=== PATIENT | female | born 1990 | race Caucasian/White ===

== ENCOUNTER → 2019-07-27 15:59 | Outpatient (BNVA) | payer OTHER, SELFPAY | PROVIDERS: Family Provider Family Medicine; PCP Family Medicine; Visit Provider Orthopaedic Surgery | DX: M25.512 Pain in left shoulder (principal) | CPT/HCPCS: 73030 ==

== ENCOUNTER → 2019-09-09 12:07 | Outpatient (BNVA) | payer OTHER, SELFPAY | PROVIDERS: Family Provider Family Medicine; PCP Family Medicine; Visit Provider Nurse Practitioner | DX: R09.89 Other specified symptoms and signs involving the circulatory and respiratory systems (principal); J20.9 Acute bronchitis, unspecified | CPT/HCPCS: 87400 ==

== ENCOUNTER 2019-10-19 18:01 | Emergency (ER) | payer OTHER, SELFPAY ==
[2019-10-19 18:24] LABS: Basophils # 0.1 10^3/uL (0.0-0.1); Basophils % 0.5 %; Eosinophils % 0.2 %; Hematocrit 40.1 % (37.0-47.0); Hemoglobin 13.1 g/dL (11.5-15.3); Lymphocytes % 39.9 %; Mean Corpuscular HGB Conc 32.7 g/dL (30.0-36.0); Mean Corpuscular Hemoglobin 28.8 pg (28.0-34.0); Mean Corpuscular Volume 88.1 fL (81-99); Mean Platelet Volume 9.4 fL (7.4-10.4); Monocytes # 0.6 10^3/uL (0.2-0.9); Monocytes % 5.9 %; Neutrophils # 5.4 10^3/uL (1.8-7.7); Neutrophils % 53.3 %; Nucleated Red Blood Cells % 0 %; Platelet Count 257 10^3/cmm (130-400); Red Blood Count 4.55 10^6/uL (4.1-5.3); Red Cell Distribution Width 11.7 % (12.1-15.1); White Blood Count 10.1 10^3/uL (4.0-10.0)
[2019-10-19 18:30] VITALS: BP 143/93; PULSE 81; RESP 18; TEMP 37.1; O2SAT 100; BMI 29.0
[2019-10-19 18:44] LABS: Alanine Aminotransferase 30 U/L (0-33); Albumin Level 4.8 g/dL (3.5-5.2); Alkaline Phosphatase 88 IU/L (35-105); Anion Gap 16.7 (5-19); Aspartate Amino Transferase 20 U/L (0-32); Blood Urea Nitrogen 10 mg/dL (6-20); Calcium 9.8 mg/dL (8.5-10.5); Carbon Dioxide 22 mmol/L (22-29); Chloride 103 mmol/L (98-107); Globulin 3.4 g/dL (1.3-4.6); Glomerular Filtration Rate 99.6 mL/min (90-130); Glucose 92 mg/dL (65-115); Lipase 15 U/L (13-60); Osmolality Calculated 282 mOsm/kg (285-295); Potassium 3.7 mmol/L (3.5-5.1); Sodium 138 mmol/L (136-145); Total Bilirubin 0.3 mg/dL (0.15-1.2); Total Protein 8.2 g/dL (6.6-8.7)
[2019-10-19 19:00] LABS: HCG Qualitative Urine. Negative (Negative)
[2019-10-19 19:03] LABS: Bilirubin Urine Neg (NEGATIVE); Blood Urine Neg (Negative); Glucose Urine UA Norm (Normal); Ketones Urine Negative (Negative); Nitrate Urine Negative (Negative); Protein Urine Neg (Negative); Specific Gravity, Urine 1.005 (1.005-1.030); Urine Appearance Clear (CLEAR); Urine Color Yellow (Yellow); Urobilinogen Urine Norm (Negative); pH Urine 7 (5-7)
[2019-10-19 19:04] LABS: Add Urine Microscopic? YES; Leukocyte Esterase Urine 2+ (Negative)
[2019-10-19 19:05] LABS: Add Urine Culture? Yes; Bacteria Urine 1+; Squamous Epithelial Cell Urine 0-4 (0-5); WBC Urine 15-25 /hpf (0-5)
[2019-10-19 19:35] VITALS: BP 137/71; PULSE 83; RESP 16; O2SAT 100
--- NOTE | 2019-10-19 19:35 | ED_ITS ---
HPI - Abdominal Pain General: Chief Complaint: Abdominal Pain Stated Complaint: abd pain, nausea Time Seen by Provider: 10/19/19 19:34 History of Present Illness: HPI narrative: Patient is a 28-year-old female who comes to the ED with right lower quadrant abdominal pain and nausea. Symptoms started about a week ago on Wednesday, October 13. Patient says she woke up feeling sick and described it as feeling green. She has felt nauseous for the past week but has not had any vomiting. She rates the abdominal pain of 5 out of 10 and is localized in the right lower quadrant. She states she has had a mild fever of 99 to 100 ?F. She is complaining of an 8 out of 10 headache pain. Due to the nausea and feeling unwell she has had some decreased oral intake over the past week. Patient has not had any abdominal surgeries. PMH of 2 pregnancies that ended in vaginal deliveries and those went well. She denies any Cp, SOB, Upper Resp symptoms, vomiting, diarrhea, constipation, hematuria, dysuria, back pain, epigastric pain or reflux. Patient also told me about her history of urinalysis showing white blood cells, but that is normal for her. She denies having any UTI symptoms currently. Associated Symptoms: Reports fever(s) and nausea; Denies chills, constipation, diarrhea, dysuria, hematochezia, hematuria and vomiting Related Data: Date of Last Menstrual Period: 10/02/19 Review of Systems Const: Reports: fever; Denies: chills or fatigue Eyes: Denies: change in vision or eye discomfort ENMT: Denies: throat pain, painful swallowing, nasal discharge or nasal congestion Card: Denies: chest pain, palpitations, edema, swelling of feet/ankles, shortness of breath on exertion or shortness of breath when lying down Resp: Denies: shortness of breath, productive cough or non-productive cough GI: Reports: abdominal pain and nausea; Denies: vomiting, diarrhea, constipation or blood in stool : Denies: flank pain, painful urination or blood in urine Musc: Denies: neck pain, back pain or extremity swelling Skin/Breast: Denies: rash or new lesion Neuro: Reports: headache; Denies: numbness in extremities or weakness in extremities PFS ED PFSH: Social History Smoking and tobacco status: never smoked History of recent travel: No Female Reproductive History: Date of last menstrual period: 10/02/19 Physical Exam Const: COMMON NORMALS: no apparent distress, oriented x3, healthy appearing and alert GENERAL APPEARANCE: cooperative and comfortable HENMT: COMMON NORMALS: normocephalic HEAD & SCALP: normocephalic MOUTH: oral and palatal mucosa normal THROAT: posterior oropharynx normal and uvula midline Eye: COMMON NORMALS: PERRL PUPIL: Yes PERRL Neck/C-Spine: COMMON NORMALS: supple GENERAL: Yes normal visual inspection Resp: COMMON NORMALS: normal respiratory effort, no retractions, no use of accessory muscles and clear to auscultation bilaterally AUSCULTATION: clear to auscultation bilaterally Cardio: COMMON NORMALS: regular rate, regular rhythm, S1 normal heart sound, S2 normal heart sound, no gallops, no clicks, no murmurs and peripheral pulses 2+ throughout RATE: regular rate RHYTHM: regular rhythm HEART SOUNDS: S1 normal and S2 normal PERIPHERAL PULSES: pulses 2+ throughout GI: COMMON NORMALS: normal to inspection, nondistended, normoactive bowel sounds, soft to palpation and no masses INSPECTION: Yes normal to inspection AUSCULTATION: Yes normoactive bowel sounds PALPATION: Yes soft, Yes tender (No peritoneal signs.) Details: RLQ (positive mcburney's) and No mass : COMMON NORMALS: Yes no CVA tenderness BLADDER/KIDNEY EXAM: Yes no CVA tenderness Back/Pelvis: COMMON NORMALS: no CVA tenderness Extremity: COMMON NORMALS: normal to inspection and no pedal edema Neuro: COMMON NORMALS: oriented x3 SENSORIUM/ORIENTATION: Yes alert GAIT: Yes normal gait Skin: COMMON NORMALS: no rashes or lesions noted GENERAL SKIN EXAM: no rashes or lesions noted and dry skin Course Vital Signs: Vital signs: Vital Signs Temperature 98.8 F 10/19/19 18:30 Pulse Rate 70 10/19/19 22:15 Respiratory Rate 16 10/19/19 22:15 Blood Pressure 126/71 10/19/19 22:15 Pulse Oximetry 100 10/19/19 22:11 MDM - Abdominal Pain MDM Narrative: Medical decision making narrative: Patient is a 29-year-old female comes to the ED with right lower quadrant abdominal pain. Symptoms started about a week ago. CT of the abdomen and pelvis was performed and showed no acute findings. Appendix was normal. Patient was diagnosed of abdominal pain in the right lower quadrant and she was given a prescription for Zofran to help with nausea. I instructed patient to return to ED if symptoms worsen. Follow-up with PCP in 5 to 7 days for reevaluation. Patient understood and agreed with plan. Lab Data: Attestation: I reviewed the patient's lab results. Labs: Lab Results 10/19/19 10/19/19 10/19/19 Range/Units 18:14 18:14 18:48 WBC 10.1 H (4.0-10.0) 10^3/ uL RBC 4.55 (4.1-5.3) 10^6/u L Hgb 13.1 (11.5-15.3) g/dL Hct 40.1 (37.0-47.0) % MCV 88.1 (81-99) fL MCH 28.8 (28.0-34.0) pg MCHC 32.7 (30.0-36.0) g/dL RDW 11.7 L (12.1-15.1) % Plt Count 257 (130-400) 10^3/c mm MPV 9.4 (7.4-10.4) fL Neut % (Auto) 53.3 % Lymph % (Auto) 39.9 % Ponce % (Auto) 5.9 % Eos % (Auto) 0.2 % Baso % (Auto) 0.5 % Neut # (Auto) 5.4 (1.8-7.7) 10^3/u L Lymph # (Auto) 4.0 (0.8-4.8) 10^3/u L Ponce # (Auto) 0.6 (0.2-0.9) 10^3/u L Eos # (Auto) 0.0 (0.0-0.8) 10^3/u L Baso # (Auto) 0.1 (0.0-0.1) 10^3/u L Nucleated RBC % (a uto) 0 % Nucleated RBCs # 0.0 /100WBC Sodium 138 (136-145) mmol/L Potassium 3.7 (3.5-5.1) mmol/L Chloride 103 (98-107) mmol/L Carbon Dioxide 22 (22-29) mmol/L Anion Gap 16.7 (5-19) BUN 10 (6-20) mg/dL Creatinine 0.7 (0.5-0.9) mg/dL GFR Calculation 99.6 (90-130) mL/min Glucose 92 (65-115) mg/dL Calculated Osmolal ity 282 L (285-295) mOsm/k g Calcium 9.8 (8.5-10.5) mg/dL Total Bilirubin 0.3 (0.15-1.2) mg/dL AST 20 (0-32) U/L ALT 30 (0-33) U/L Alkaline Phosphata se 88 (35-105) IU/L Total Protein 8.2 (6.6-8.7) g/dL Albumin 4.8 (3.5-5.2) g/dL Globulin 3.4 (1.3-4.6) g/dL Lipase 15 (13-60) U/L HCG, Qual Negative (Negative) Urine Color (Yellow) Urine Appearance (CLEAR) Urine pH (5-7) Ur Specific Gravit y (1.005-1.030) Urine Protein (Negative) Urine Glucose (UA) (Normal) Urine Ketones (Negative) Urine Blood (Negative) Urine Nitrate (Negative) Urine Bilirubin (NEGATIVE) Urine Urobilinogen (Negative) mg/dL Ur Leukocyte Fe ase (Negative) Urine RBC (0-2) /hpf Urine WBC (0-5) /hpf Ur Squamous Epith Cells (0-5) Urine Bacteria (NONE) 10/19/19 Range/Units 18:48 WBC (4.0-10.0) 10^3/ uL RBC (4.1-5.3) 10^6/u L Hgb (11.5-15.3) g/dL Hct (37.0-47.0) % MCV (81-99) fL MCH (28.0-34.0) pg MCHC (30.0-36.0) g/dL RDW (12.1-15.1) % Plt Count (130-400) 10^3/c mm MPV (7.4-10.4) fL Neut % (Auto) % Lymph % (Auto) % Ponce % (Auto) % Eos % (Auto) % Baso % (Auto) % Neut # (Auto) (1.8-7.7) 10^3/u L Lymph # (Auto) (0.8-4.8) 10^3/u L Ponce # (Auto) (0.2-0.9) 10^3/u L Eos # (Auto) (0.0-0.8) 10^3/u L Baso # (Auto) (0.0-0.1) 10^3/u L Nucleated RBC % (a uto) % Nucleated RBCs # /100WBC Sodium (136-145) mmol/L Potassium (3.5-5.1) mmol/L Chloride (98-107) mmol/L Carbon Dioxide (22-29) mmol/L Anion Gap (5-19) BUN (6-20) mg/dL Creatinine (0.5-0.9) mg/dL GFR Calculation (90-130) mL/min Glucose (65-115) mg/dL Calculated Osmolal ity (285-295) mOsm/k g Calcium (8.5-10.5) mg/dL Total Bilirubin (0.15-1.2) mg/dL AST (0-32) U/L ALT (0-33) U/L Alkaline Phosphata se (35-105) IU/L Total Protein (6.6-8.7) g/dL Albumin (3.5-5.2) g/dL Globulin (1.3-4.6) g/dL Lipase (13-60) U/L HCG, Qual (Negative) Urine Color Yellow (Yellow) Urine Appearance Clear (CLEAR) Urine pH 7 (5-7) Ur Specific Gravit y 1.005 (1.005-1.030) Urine Protein Neg (Negative) Urine Glucose (UA) Norm (Normal) Urine Ketones Negative (Negative) Urine Blood Neg (Negative) Urine Nitrate Negative (Negative) Urine Bilirubin Neg (NEGATIVE) Urine Urobilinogen Norm (Negative) mg/dL Ur Leukocyte Fe ase 2+ H (Negative) Urine RBC None (0-2) /hpf Urine WBC 15-25 H (0-5) /hpf Ur Squamous Epith Cells 0-4 H (0-5) Urine Bacteria 1+ H (NONE) Imaging Data ^: CT Abd/Pel: Attestation: I personally reviewed and interpreted this imaging study as follows: Radiologist's impression: [facility] [address] [place] [address] CT Scan Report Signed Patient: Elsie Alvarado Unit #: [id number] : 1990 Age/Sex: 28 / F ADM Date: 10/19/19 Loc: ER Room/Bed: Attending Dr: Ordering Provider/Ordering MD: Norberto Verdugo Date of Service: 10/19/19 Procedure(s): CT abdomen pelvis w con* [id number] Accession Number(s): [id number] Report Number: [id number] PROCEDURE INFORMATION: Exam: CT Abdomen And Pelvis With Contrast Exam date and time: 10/19/2019 7:54 PM Age: 28 years old Clinical indication: Abdominal pain; Additional info: Rlq pain and nausea, TECHNIQUE: Imaging protocol: Computed tomography of the abdomen and pelvis with intravenous contrast. Total DLP: 819.86 mGy-cm Radiation optimization: All CT scans at this facility use at least one of these dose optimization techniques: automated exposure control; mA and/or kV adjustment per patient size (includes targeted exams where dose is matched to clinical indication); or iterative reconstruction. Contrast material: OMNIPAQUE; Contrast volume: 95 ml; Contrast route: IV; COMPARISON: US pelvic with transvaginal 09/03/2014 9:29 AM FINDINGS: Liver: Unremarkable.No mass. Gallbladder and bile ducts: Normal. No calcified stones. No ductal dilation. Pancreas: Normal. No ductal dilation. Spleen: Normal. No splenomegaly. Adrenals: Normal. No mass. Kidneys and ureters: There is no evidence of hydronephrosis. There is bilateral nonobstructive nephrolithiasis. There are multiple tiny/punctate calculi. The largest calculus is visualized on the right measuring 3.5 mm in size. Stomach and bowel: Mild diverticulosis is present in the distal colon. There is no evidence of colitis/diverticulitis. There is no evidence of intestinal perforation or obstruction. Appendix: A normal appendix is identified. Intraperitoneal space: There is a trace amount of fluid in the pelvis. Vasculature: There are numerous benign phleboliths in the pelvis. Lymph nodes: Unremarkable.No enlarged lymph nodes. Bladder: There is mild bladder wall thickening. This may reflect lack of distention. Reproductive: Uterus is unremarkable. There is a 4.3 cm fluid density right ovarian cyst. There is a 3.8 cm fluid density left ovarian cyst. Bones/joints: Unremarkable. No acute fracture. Soft tissues: There is a fat-containing umbilical hernia. Other findings: No obstructing calculus is identified. CT/CT abdomen pelvis w con* [id number] IMPRESSION: 1. No bowel thickening or inflammatory changes. Unremarkable appendix. 2. Bilateral nephrolithiasis. No hydronephrosis or obstructing calculus. 3. Bilateral ovarian cysts.Follow-up is not necessary. Radiation Dose CTDIVOL = (mGy): DLP = 819.86 (mGy-cm) Dictated By: Shilpa Marroquin Signed By: Shilpa Marroquin Signed Date/Time: 10/19/192105 DD/ 05 Discharge Plan Discharge Patient Disposition: Home, Self-Care Clinical Impression: Nausea Abdominal pain Qualifiers: Abdominal location: right lower quadrant Qualified Code(s): R10.31 - Right lower quadrant pain Condition: Stable Prescriptions: New ondansetron 4 mg tablet,disintegrating 4 mg PO Q8H Qty: 20 RF: 0 No Action bupropion HCl 150 mg tablet extended release 24 hr 150 mg PO QAM RF: 0 albuterol sulfate [Ventolin HFA] 90 mcg/actuation HFA aerosol inhaler 2 puff INHALATION Q6H PRN (Reason: shortness of breath or wheezing) Qty: 6.7 RF: 0 Discharge Orders: Discharge Order (Routine); Ordered 10/19/19 Ordered By: Norberto Verdugo Referrals: Chaim Myrick DO [Primary Care Provider] - Discharge Diet: Regular Discharge Activity: Resume usual activity Patient Instructions: Acute Nausea and Vomiting (ED), Abdominal Pain (ED) Activity Restrictions/Additional Instructions: Call your PCP and set up a follow-up appointment in the next 5 days valuation. Take Zofran up to 3 times a day as needed for nausea. Take ibuprofen or Tylenol for any pain or fever. Drink plenty of fluids and stay hydrated. Return to the ED if you have any worsening symptoms. Discharge Date/Time: 10/19/19 22:20 Coding Level of Care Code ED Embosser Apprentice for Chg Fwd Exam Comprehensive
--- NOTE | 2019-10-19 19:50 | CTR_ITS ---
PROCEDURE INFORMATION: Exam: CT Abdomen And Pelvis With Contrast Exam date and time: 10/19/2019 7:54 PM Age: 28 years old Clinical indication: Abdominal pain; Additional info: Rlq pain and nausea, TECHNIQUE: Imaging protocol: Computed tomography of the abdomen and pelvis with intravenous contrast. Total DLP: 819.86 mGy-cm Radiation optimization: All CT scans at this facility use at least one of these dose optimization techniques: automated exposure control; mA and/or kV adjustment per patient size (includes targeted exams where dose is matched to clinical indication); or iterative reconstruction. Contrast material: OMNIPAQUE; Contrast volume: 95 ml; Contrast route: IV; COMPARISON: US pelvic with transvaginal 09/03/2014 9:29 AM FINDINGS: Liver: Unremarkable.No mass. Gallbladder and bile ducts: Normal. No calcified stones. No ductal dilation. Pancreas: Normal. No ductal dilation. Spleen: Normal. No splenomegaly. Adrenals: Normal. No mass. Kidneys and ureters: There is no evidence of hydronephrosis. There is bilateral nonobstructive nephrolithiasis. There are multiple tiny/punctate calculi. The largest calculus is visualized on the right measuring 3.5 mm in size. Stomach and bowel: Mild diverticulosis is present in the distal colon. There is no evidence of colitis/diverticulitis. There is no evidence of intestinal perforation or obstruction. Appendix: A normal appendix is identified. Intraperitoneal space: There is a trace amount of fluid in the pelvis. Vasculature: There are numerous benign phleboliths in the pelvis. Lymph nodes: Unremarkable.No enlarged lymph nodes. Bladder: There is mild bladder wall thickening. This may reflect lack of distention. Reproductive: Uterus is unremarkable. There is a 4.3 cm fluid density right ovarian cyst. There is a 3.8 cm fluid density left ovarian cyst. Bones/joints: Unremarkable. No acute fracture. Soft tissues: There is a fat-containing umbilical hernia. Other findings: No obstructing calculus is identified. CT/CT abdomen pelvis w con* [id number] IMPRESSION: 1. No bowel thickening or inflammatory changes. Unremarkable appendix. 2. Bilateral nephrolithiasis. No hydronephrosis or obstructing calculus. 3. Bilateral ovarian cysts.Follow-up is not necessary. Radiation Dose CTDIVOL = (mGy): DLP = 819.86 (mGy-cm)
[2019-10-19] MEDS: sodium chloride 0.9% 1,000 ML 999 ML IV (20:31)
[2019-10-19] MEDS: ondansetron 2 mg/ML SDV 2 mL 4 MG IVP (20:33)
[2019-10-19] MEDS: ketorolac 30 mg/mL INJ IVP (20:33)
[2019-10-19] MEDS: iohexol 300 mg/mL 100 mL Btl IV (20:45)
[2019-10-19 22:11] VITALS: BP 126/72; PULSE 73; RESP 16; O2SAT 100
[2019-10-19 22:15] VITALS: BP 126/71; PULSE 70; RESP 16
== END 2019-10-19 22:20 | disposition home or self-care (01) ==
PROVIDERS: Emergency Medicine; Emergency Provider Physician Assistant; Family Provider Family Medicine; PCP Family Medicine
DX: R10.31 Right lower quadrant pain (principal); R11.0 Nausea
CPT/HCPCS: 12345; 36415; 74177; 80053; 81001; 81025; 83690; 85025; 87086; 96361; 96374; 96375; 99283; 99284; A9270; J1885; J2405; J7030; Q9967

== ENCOUNTER → 2019-12-18 16:14 | Outpatient (BNVA) | payer OTHER, SELFPAY | PROVIDERS: Family Provider Family Medicine; PCP Family Medicine; Visit Provider Orthopaedic Surgery | DX: M25.531 Pain in right wrist (principal) | CPT/HCPCS: 73110 ==

== ENCOUNTER 2019-12-21 11:39 | Outpatient (CLI) | payer OTHER, SELFPAY ==
--- NOTE | 2019-12-21 11:45 | MR_ITS ---
WS: [id number] MRI LEFT SHOULDER HISTORY: Pain. Injury 10 years ago. COMPARISON: LEFT shoulder radiograph 07/27/2019 TECHNIQUE: Multiplanar sequences of the shoulder joint are submitted. Normal AC joint. No encroachment upon the rotator cuff muscles or tendons. Very slight downsloping of the acromion with no narrowing of the acromiohumeral articulation. No os acromion. Biceps tendon is in normal position. No fracture or Hill-Sachs deformity. No subacromial or subdeltoid bursal fluid. Humeral head is lynnette lly positioned. The labrum is intact. Smooth curvilinear line at the base of the anterior labrum is p robably a normal variant. No rotator cuff tears. No muscle atrophy or edema. MR/MR shoulder LT wo con* [id number] IMPRESSION: Negative MRI left shoulder.
== END 2019-12-21 11:40 | disposition home or self-care (01) ==
LOC: RADSHAW 11:43
PROVIDERS: PCP Family Medicine; Visit Provider Orthopaedic Surgery
DX: M25.512 Pain in left shoulder (principal)
CPT/HCPCS: 73221

== ENCOUNTER → 2020-01-24 14:57 | Outpatient (BNVA) | payer OTHER, SELFPAY | PROVIDERS: PCP Family Medicine; Visit Provider Dermatology | DX: R23.8 Other skin changes (principal) | CPT/HCPCS: 99203 ==

== ENCOUNTER 2020-04-22 14:25 | Day surgery (SDC) | payer OTHER, SELFPAY ==
[2020-04-22 14:49] VITALS: BP 129/60; PULSE 111; RESP 18; TEMP 37.2; O2SAT 100
[2020-04-22 15:09] VITALS: BMI 28.3
[2020-04-22] MEDS: sodium chloride 0.9% 1,000 ML 30 ML IV (15:14)
--- NOTE | 2020-04-22 15:34 | P.ANESASSM_ITS ---
Pre-Anesthetic Assessment Pre-Anesthetic Assessment: Height/Weight: Height 1.63 m Weight 74.843 kg Temp Pulse Resp BP Pulse Ox 99 F 111 H 18 129/60 100 04/22/20 14:49 04/22/20 14:49 04/22/20 14:49 04/22/20 14:49 04/22/20 14:49 Preop Diagnosis: Perianal abscess Proposed Procedure: Operation Date: 04/22/20 16:40 Proposed Procedures p Perirectal Abscess Incision And Drainage [id number] K62.89(Not Applicable) - Russel Jiménez MD s Exam Under Anesthesia(Not Applicable) - Russel Jiménez MD Familial anesthetic complications: None Was Beta Finn taken within 24 hours: N/A Last intake: Ate Breakfast at 0830 Social: Social History: No alcohol and No tobacco Exam: Pre-Anes Outpt Exam: alert, oriented x 3, clear to auscultation bilatera lly and regular rate & rhythm Airway: Cervical ROM: WNL MP: 3 Dentition: Full Pulmonary: Pulmonary: None reported CV/HEM: CV/HEM: None reported : : None reported Hepatic: Hepatic: None reported GI: GI: None reported Metabolic: Metabolic: None reported Musc/skel: Musc/skel: None reported Neuropsych: Neuropsych: None reported Anesthetic Plan: ASA status: 1 Anesthesia: MAC Risk of > 500 ml blood loss (7ml/kg in children): No Meds/Allergies Current Medications: Current Medications Generic Name Dose Route Start Last Admin Trade Name Freq PRN Reason Stop Dose Admin Sodium Chloride 1,000 mls @ 30 ml s/hr 04/22/20 14:45 04/22/20 15:14 Sodium Chloride 0.9% IV 04/23/20 14:44 30 mls/hr .Q24H ARUL Administration PFSH Anesthesia PFSH: Family History Other CAD (coronary artery disease) Cancer Diabetes Hypertension Social History Smoking and tobacco status: never smoked Alcohol intake: never History of recent travel: No Female Reproductive History: Date of last menstrual period: 04/05/20 Data Anesthesia Cardiac Studies: No Data to Display
[2020-04-22 15:58] LABS: OR HCG Qualitative Urine Negative (Negative)
--- NOTE | 2020-04-22 16:07 | W.PM.OPSUD ---
Surgery/Procedure H&P Update DATE OF PROCEDURE: April 22, 2020 DATE H&P PERFORMED: 04/22/20 H&P UPDATE INFORMATION: I have reviewed H&P completed within last 30 days, I have examined patient prior to procedure and No changes to prior documentation PREOP DIAGNOSIS: Perianal abscess PRIMARY INDICATION FOR PROCEDURE: The same PLANNED PROCEDURE: Operation Date: 04/22/20 16:40 Proposed Procedures p Perirectal Abscess Incision And Drainage [id number] K62.89(Not Applicable) - Russel Jiménez MD s Exam Under Anesthesia(Not Applicable) - Russel Jiménez MD
[2020-04-22] MEDS: ciprofloxacin 400 MG/200 ML PREMIX 200 MG IV (16:10)
[2020-04-22] MEDS: lidocaine 2% INJ 20 mL INJECTION (16:35)
[2020-04-22] MEDS: metroNIDAZOLE IV 500 MG/100 ML PREMIX 100 MG IV (16:40)
--- NOTE | 2020-04-22 16:42 | P.OP_ITS ---
Operative Report Date of procedure: April 22, 2020 Pre-op Diagnosis: Perianal abscess Post-op diagnosis: other (Left perianal abscess little bit towards the midline) Post-op Findings: Purulent discharge and residual necrotic tissues of the abscess cavity Procedure Done: Incision and drainage of left perianal abscess and debridement of abscess cavity Examination under anesthesia Implants: Packing using half inch Nu Gauze impregnated the lidocaine 2% in the abscess cavity Specimens removed/disposition: Tissues for cultures and sensitivities Surgeon: Russel Jiménez Inspector Rag Sorting: vehicle operator technicianxiomara Chaparro Circulating nurse Helena Anesthesia: MAC (JAKE Xiong) Estimated blood loss (mL): 5 Condition: stable Disposition: same day Brief History: This is a pleasant 29 years old female patient with history of draining left perianal abscess, presented to my office today and after further evaluation, I did parliamentary counsel the patient for incision and drainage with examination under anesthesia. Patient agreed to proceed and informed consent per chart. Procedure: Patient was identified in the holding area and was taken back to the negative pressure operating room for COVID-19 precautions as the patient test is pending, which was first placed in left lateral position and IV propofol was infused by anesthesia, prophylactic IV antibiotics were given per protocol, all pressure points were padded and left X roll was placed., Patient was secured appropriately to the table.Time-out was done verifying the patient's name/date of /planned procedure and destination after the procedure, all were in agreement. Prep and drape was done thereafter under the usual sterile technique Digital rectal examination was done shows no masses or blood, a well-lubricated anoscope was introduced under direct visualization and there was no evidence of fistulae or sinuses or anal masses or bleeding per rectum.I placed a wet 4 x 4 inside the anal canal to prevent stools from encroaching on the wound site, that was taken out at the end of the procedure. Left perianal abscess with residual necrotic tissues at the abscess cavity was evident at the left perianal area and more towards the midline, measures about 0.5 x 0.5 cm and a depth of 0.[address] to the subcutaneous tissue, cruciate incision was done and debridement sharply of the abscess cavity was achieved. And tissues were sent for cultures and sensitivities. Post debridement measurements 2 x 3 cm x 0.[address] to the subcutaneous Copious irrigation was achieved and hemostasis using Bovie cauterization. Anoscope was then reintroduced and the 4 x 4 placed initially was removed Packing using half inch Nu Gauze impregnated and lidocaine 2% was done followed by ABDs and surgical pants. Count was completed at the end of the procedure, patient tolerated the procedure well and was taken to the recovery room in stable condition I was present for the whole entire procedure
[2020-04-22 16:53] VITALS: BP 101/51; PULSE 99; RESP 18; TEMP 36.6; O2SAT 98
[2020-04-22 17:14] VITALS: BP 117/66; PULSE 94; RESP 18; O2SAT 98
--- NOTE | 2020-04-22 17:46 | SUR.PHASEII ---
patient experiencing a little nausea . offered zofran as ordered. Patient wanted it.
[2020-04-22] MEDS: ondansetron 2 mg/ML SDV 2 mL 4 MG IVP ×2 (17:48→18:20)
--- NOTE | 2020-04-22 18:07 | SUR.PHASEII ---
Patient still complains of nausea. eating crackers and drinking Dr. Flores. will repeat zofran as ordered. Patient remains sleepy.
--- NOTE | 2020-04-22 18:50 | ANE.PACU2 ---
Inpatient post-anesthesia follow up: Airway intact: Yes Vital signs: Temperature 97.9 F Pulse Rate 94 Respiratory Rate 18 Blood Pressure 117/66 Pulse Oximetry 98 Oxygen Delivery Me thod Room Air Oxygen Flow Rate Fraction of Inspir ed Oxygen Hydration adequate: Yes Nausea and vomiting: No Pain level: 4 Mental status: Baseline
== END 2020-04-22 18:50 | disposition home or self-care (01) ==
PROVIDERS: Anesthesiology; PCP Family Medicine; Visit Provider Surgery
PROC: (CPT 46040; principal; 2020-04-22 16:30)
PROC: (CPT 46050; 2020-04-22 16:30)
DX: K61.0 Anal abscess (principal)
CPT/HCPCS: 46050; 12345; 84703; 87070; 87077; 87176; 87186; 87205; 96365; 96374; 96375; J0131; J0744; J2250; J2405; J2704; J3010; J7030; S0030

== ENCOUNTER → 2020-06-07 11:22 | Outpatient (BNVA) | payer OTHER, SELFPAY | PROVIDERS: PCP Family Medicine; Visit Provider Orthopaedic Surgery | DX: M54.9 Dorsalgia, unspecified (principal); M41.9 Scoliosis, unspecified | CPT/HCPCS: 72114 ==

== ENCOUNTER → 2020-08-15 13:00 | Outpatient (BNVA) | payer OTHER, SELFPAY | PROVIDERS: PCP Family Medicine; Referring Provider Dermatology; Visit Provider Podiatrist Foot & Ankle Surgery | DX: M79.671 Pain in right foot (principal); M79.672 Pain in left foot | CPT/HCPCS: 73630 ==

== ENCOUNTER 2021-07-22 13:03 | Outpatient (CLI) | payer OTHER, SELFPAY ==
--- NOTE | 2021-07-22 13:31 | XR_ITS ---
WS: [id number] Acute abdomen series, 07/22/2021 Clinical Data: HEMATURIA Comparison: None. Findings: In the chest there are no nodules, masses or effusions. The heart is normal. The pulmonary vascularity is not increased. No free air is seen beneath the diaphragms. No abnormal intra-abdominal masses are seen. There are sm all calcifications overlying both kidneys. There are phleboliths in the true pelvis. There is fecal m aterial in the rectum. Minimal air is seen in the stomach, small bowel and colon. XR/XR acute abdomen series [id number] Impression: 1. Negative chest. 2. Small bilateral renal calculi.
== END 2021-07-22 13:04 | disposition home or self-care (01) ==
PROVIDERS: PCP Family Medicine; Visit Provider Family Medicine
DX: R31.9 Hematuria, unspecified (principal); N20.0 Calculus of kidney
CPT/HCPCS: 74022